=== PATIENT | male | born 1965 | race Caucasian/White ===

== ENCOUNTER 2017-10-24 16:10 | Emergency (ER) | payer OTHER ==
[2017-10-24] MEDS ORDERED: HYDROCODONE/APAP 10/325 TAB ONE (16:35)
[2017-10-24] MEDS ORDERED: CYCLOBENZAPRINE 10 MG TAB ONE (16:35)
[2017-10-24] MEDS ORDERED: IBUPROFEN 400 MG TAB ONE (16:35)
--- NOTE | 2017-10-24 17:52 | RAD REPORT ---
EXAM DESCRIPTION: RAD - Tib Fib Right - 10/24/2017 5:37 pm CLINICAL HISTORY: Right calf pain COMPARISON: None. FINDINGS: No fracture is identified. There is no dislocation or periosteal reaction noted. No acute or suspicious bony finding. No foreign body or other soft tissue abnormality. IMPRESSION: Negative right tibia & fibula examination.
--- NOTE | 2017-10-24 18:25 | EDPHYS ---
Physician Documentation [facility] Name: Chris Fairchild Age: 52 yrs Sex: Male : 1965 Arrival Date: 10/24/2017 Time: 16:13 Bed 14 Private MD: None, None ED Physician Leroy Gardner HPI: 10/24 16:59 This 52 yrs old Male presents to ER via Ambulatory with complaints of Right pm1 Leg Pain. 16:59 The patient presents with pain, that is acute, spasm, tightness. The complaints affect pm1 the right calf. Context: The problem was sustained outdoors, resulted from Sudden stopping while walking, the patient can partially bear weight, the patient is able to ambulate, with moderate difficulty, Problem is a result from a previous injury: Yes. Same right calf injury about 10 years ago that self resolved. Onset: The symptoms/episode began/occurred 5 hour(s) ago. Modifying factors: The symptoms are alleviated by nonweight bearing to right leg. the symptoms are aggravated by weight bearing. Associated signs and symptoms: Pertinent negatives numbness, tingling. Treatment prior to arrival includes: over the counter medications, NSAIDS, ibuprofen 400 mg at 1300. Severity of symptoms: in the emergency department the symptoms are unchanged. The patient has experienced a previous episode, many years ago. The patient has not recently seen a physician. Patient was walking after lunch then another person cut in front of him suddenly and he stopped quickly and possibly planted his foot. Immediately started feeling cramping and pain to right calf. No Achilles tendon pain or tenderness. Historical: - Allergies: 16:17 No Known Allergies; - Home Meds: 16:17 Simvastatin Oral [Active]; - PMHx: 16:17 Hyperlipidemia; - PSHx: 16:17 None; aj - Immunization history:: Adult Immunizations up to date. - Social history:: Smoking status: Patient/guardian denies using tobacco. ROS: 16:59 Constitutional: Negative for fever, chills, and weight loss, Eyes: Negative for injury, pm1 pain, redness, and discharge, ENT: Negative for injury, pain, and discharge, Neck: Negative for injury, pain, and swelling, Cardiovascular: Negative for chest pain, palpitations, and edema, Respiratory: Negative for shortness of breath, cough, wheezing, and pleuritic chest pain, Abdomen/GI: Negative for abdominal pain, nausea, vomiting, diarrhea, and constipation, Back: Negative for injury and pain. 16:59 Skin: Negative for injury, rash, and discoloration, Neuro: Negative for headache, weakness, numbness, tingling, and seizure. 16:59 MS/extremity: Positive for pain, of the right calf, Negative for decreased range of motion, swelling. Exam: 16:59 Constitutional: This is a well developed, well nourished patient who is awake, alert, pm1 and in no acute distress. Head/Face: Normocephalic, atraumatic. Chest/axilla: Normal chest wall appearance and motion. Nontender with no deformity. No lesions are appreciated. Cardiovascular: Regular rate and rhythm with a normal S1 and S2. No gallops, murmurs, or rubs. Normal PMI, no JVD. No pulse deficits. Respiratory: Lungs have equal breath sounds bilaterally, clear to auscultation and percussion. No rales, rhonchi or wheezes noted. No increased work of breathing, no retractions or nasal flaring. Back: No spinal tenderness. No costovertebral tenderness. Full range of motion. Skin: Warm, dry with normal turgor. Normal color with no rashes, no lesions, and no evidence of cellulitis. 16:59 Musculoskeletal/extremity: Extremities: grossly normal except: noted in the right calf: tenderness, , ROM: full active range of motion, in all extremities, Circulation is intact in all extremities. Pulses: are normal with no appreciated deficits, noted to be 2+ in the right popliteal artery, right dorsalis pedis artery, left popliteal artery and left dorsalis pedis artery, Sensation intact. Vital Signs: 16:17 BP 151 / 99; Pulse 90; Resp 18; Temp 98.0; Pulse Ox 97% on R/A; Weight 122.47 kg; aj Height 5 ft. 10 in. (177.80 cm); Pain 6/10; 17:30 BP 145 / 91; Pulse 85; Resp 16 S; Pulse Ox 97% on R/A; jl7 18:30 BP 145 / 90; Pulse 86; Resp 18 S; Pulse Ox 97% on R/A; jl7 16:17 Body Mass Index 38.74 (122.47 kg, 177.80 cm) aj Procedures: 18:42 Splinting: Splint applied to right ankle using Orthoglass splint, applied by tech. pm1 Examined by me, post splint application: neurovascular intact, 2+ distal pulses palpable, brisk capillary refill noted, Patient tolerated well. MDM: 16:22 Patient medically screened. pm1 18:24 Data reviewed: vital signs. Data interpreted: Pulse oximetry: on room air is 97 %. pm1 Interpretation: normal. Counseling: I had a detailed discussion with the patient and/or guardian regarding: the historical points, exam findings, and any diagnostic results supporting the discharge/admit diagnosis, radiology results, the need for outpatient follow up, to return to the emergency department if symptoms worsen or persist or if there are any questions or concerns that arise at home. 18:42 ED course: patient requested a splint to help prevent extension of right foot because pm1 it triggers moderate to severe pain. 10/24 16:31 Order name: Tib Fib Right XRAY; Complete Time: 17:56 pm1 10/24 16:32 Order name: Crutches; Complete Time: 18:36 pm1 10/24 18:24 Order name: Posterior Orthoglass Ankle Splint; Complete Time: 18:36 pm1 Administered Medications: 16:38 Drug: Flexeril 10 mg Route: PO; jl7 18:38 Follow up: Response: No adverse reaction; Pain is unchanged, physician notified jl7 16:38 Drug: [place] 10 mg-325 mg 1 tabs Route: PO; jl7 17:30 Follow up: Response: No adverse reaction; Pain is unchanged, physician notified jl7 16:39 Drug: Ibuprofen 400 mg Route: PO; jl7 17:30 Follow up: Response: No adverse reaction; Pain is unchanged, physician notified jl7 Disposition: 19:15 Co-signature as Attending Physician, Leroy Gardner MD I agree with the assessment and debbi plan of care. Disposition: 10/24/17 18:25 Discharged to Home. Impression: Strain of other muscle(s) and tendon(s) of posterior muscle group at lower leg level, right leg. - Condition is Stable. - Discharge Instructions: Cast or Splint Care, Crutch Use, Muscle Strain. - Prescriptions for Naprosyn 500 mg Oral Tablet - take 1 tablet by ORAL route 2 times per day take with food; 30 tablet. Cyclobenzaprine 10 mg Oral Tablet - take 1 tablet by ORAL route every 8 hours As needed; 30 tablet. - Medication Reconciliation Form, Thank You Letter form. - Follow up: Emergency Department; When: As needed; Reason: Worsening of condition. Follow up: Dr. Carlos Manuel Keller; When: 2 - 3 days; Reason: Recheck today's complaints, Continuance of care, Re-evaluation by your physician. - Problem is new. - Symptoms have improved. Signatures: Dispatcher [employer] EDEmilie Scales, RN RN Leroy Dowd MD MD cha Marinas, Patrick, RIGO VICE PRESIDENT OF INSTRUCTION pm1 Destin Hernandez RN RN jl7
--- NOTE | 2017-10-24 18:25 | ER ---
Nurse's Notes [facility] Name: Chris Fairchild Age: 52 yrs Sex: Male : 1965 Arrival Date: 10/24/2017 Time: 16:13 Bed 14 Private MD: None, None Diagnosis: Strain of other muscle(s) and tendon(s) of posterior muscle group at lower leg level, right leg Presentation: 10/24 16:15 Presenting complaint: Patient states: "I sprained my right calf muscle at lunch time aj when I had to stop suddenly while walking." Reports taking Ibuprofen 400 MG at 1300. Transition of care: patient was not received from another setting of care. Onset of symptoms was October 24, 2017. Initial Sepsis Screen: Does the patient meet any 2 criteria? No. Patient's initial sepsis screen is negative. Does the patient have a suspected source of infection? No. Patient's initial sepsis screen is negative. Care prior to arrival: None. 16:15 Method Of Arrival: Ambulatory 16:15 Acuity: YANETH 4 aj Triage Assessment: 16:17 General: Appears in no apparent distress. comfortable, Behavior is calm, cooperative, aj appropriate for age. Pain: Complains of pain in right calf Pain currently is 6 out of 10 on a pain scale. Neuro: Level of Consciousness is awake, alert, obeys commands, Oriented to person, place, time, situation. Respiratory: Airway is patent Respiratory effort is even, unlabored, Respiratory pattern is regular, symmetrical. Derm: Skin is intact, is healthy with good turgor, Skin is pink, warm \\T\\ dry. normal. Historical: - Allergies: 16:17 No Known Allergies; aj - Home Meds: 16:17 Simvastatin Oral [Active]; aj - PMHx: 16:17 Hyperlipidemia; aj - PSHx: 16:17 None; aj - Immunization history:: Adult Immunizations up to date. - Social history:: Smoking status: Patient/guardian denies using tobacco. Screenin:25 Abuse screen: Denies threats or abuse. Denies injuries from another. Nutritional jl7 screening: No deficits noted. Tuberculosis screening: No symptoms or risk factors identified. Fall Risk Gait- Impaired (20 pts.). Total Verma Fall Scale indicates No Risk (0-24 pts). Assessment: 16:25 General: Appears in no apparent distress. Pain: Complains of pain in right calf Pain jl7 currently is 6 out of 10 on a pain scale. Quality of pain is described as throbbing, Pain began suddenly, 4 hours ago. Is continuous. Neuro: Level of Consciousness is awake, alert, obeys commands, Oriented to person, place, time, situation. Cardiovascular: Patient's skin is warm and dry. Respiratory: Airway is patent Respiratory effort is even, unlabored, Respiratory pattern is regular, symmetrical. Musculoskeletal: Swelling absent. 17:30 Reassessment: No changes from previously documented assessment. Patient and/or family jl7 updated on plan of care and expected duration. Pain level reassessed. Patient is alert, oriented x 3, equal unlabored respirations, skin warm/dry/pink. 17:55 Reassessment: provider at bedside discussing plan of care. jl7 Vital Signs: 16:17 BP 151 / 99; Pulse 90; Resp 18; Temp 98.0; Pulse Ox 97% on R/A; Weight 122.47 kg; aj Height 5 ft. 10 in. (177.80 cm); Pain 6/10; 17:30 BP 145 / 91; Pulse 85; Resp 16 S; Pulse Ox 97% on R/A; jl7 18:30 BP 145 / 90; Pulse 86; Resp 18 S; Pulse Ox 97% on R/A; jl7 16:17 Body Mass Index 38.74 (122.47 kg, 177.80 cm) ED Course: 16:13 Patient arrived in ED. mr 16:14 None, None is Private Physician. mr 16:16 Triage completed. aj 16:17 Arm band placed on left wrist. Patient placed in an exam room. aj 16:19 Balta Carson, RIGO is PHCP. pm1 16:19 Leroy Gardner MD is Attending Physician. pm1 16:19 Destin Hernandez, LING is Primary Nurse. jl7 16:25 Patient has correct armband on for positive identification. Bed in low position. Call jl7 light in reach. Side rails up X 1. Pulse ox on. NIBP on. 17:36 X-ray completed. Portable x-ray completed in exam room. Patient tolerated procedure kc2 well. 17:37 Tib Fib Right XRAY In Process Unspecified. EDMS 18:25 Carlos Manuel Keller MD is Referral Physician. pm1 18:53 Crutch training done. Orthoglass splint: Posterior short lleg splint applied on right mh5 leg. 18:57 No provider procedures requiring assistance completed. Patient did not have IV access jl7 during this emergency room visit. IV discontinued. Administered Medications: 16:38 Drug: Flexeril 10 mg Route: PO; jl7 18:38 Follow up: Response: No adverse reaction; Pain is unchanged, physician notified jl7 16:38 Drug: [place] 10 mg-325 mg 1 tabs Route: PO; jl7 17:30 Follow up: Response: No adverse reaction; Pain is unchanged, physician notified jl7 16:39 Drug: Ibuprofen 400 mg Route: PO; jl7 17:30 Follow up: Response: No adverse reaction; Pain is unchanged, physician notified jl7 Outcome: 18:25 Discharge ordered by MD. pm1 18:42 Discharged to home ambulatory, with crutches, with family. jl7 18:42 Condition: stable 18:42 Discharge instructions given to patient, family, Instructed on discharge instructions, follow up and referral plans. medication usage, crutch walking, Demonstrated understanding of instructions, follow-up care, medications, crutch walking, Prescriptions given X 2. 18:55 Patient left the ED. jl7 Signatures: Dispatcher [employer] EDMS Emilie Connor, RN Savita Cannon Patrick, INDUSTRIAL ROOFER HELPER INDUSTRIAL ROOFER HELPER 1 Joanne Golden [facility] Savita Long [facility] Destin Hernandez RN RN jl7 Corrections: (The following items were deleted from the chart) 16:18 16:15 Acuity: YANETH 5 aj 18:38 18:37 Response: No adverse reaction; Pain is decreased jl7 jl7 18:57 18:42 Crutch training done. Orthoglass splint: jl7 jl7
== END 2017-10-24 18:55 | disposition home or self-care (01) ==
LOC: ER 16:10
PROC: 2W3QX1Z Immobilization of Right Lower Leg using Splint (ICD-10-PCS; principal; 2017-10-24)
DX: S86.111A Strain of other muscle(s) and tendon(s) of posterior muscle group at lower leg level, right leg, initial encounter (principal); X58.XXXA Exposure to other specified factors, initial encounter; Y93.01 Activity, walking, marching and hiking; Y92.89 Other specified places as the place of occurrence of the external cause; E78.5 Hyperlipidemia, unspecified
CPT/HCPCS: 99284

== ENCOUNTER 2024-05-18 08:11 | Observation (INO) | payer OTHER ==
[2024-05-18 08:48] LABS: Absolute Basophils 0.1 K/uL (0-0.5); Absolute Eosinophils 0.1 K/uL (0-0.5); Absolute Lymphocytes (CBC) 0.9 K/uL (0.7-4.9); Absolute Monocytes 0.5 K/uL (0.1-1.3); Absolute Neutrophil 5.2 K/uL (1.8-8.0); Basophils % 1.1 % (0-1.3); Eosinophils % 1.2 % (0-4.4); Hematocrit 43.1 % (39.6-49.0); Hemoglobin 14.8 g/dL (13.6-17.9); MCH 29.7 pg (27.0-35.0); MCHC 34.4 g/dL (32.0-36.0); MCV 86.2 fL (80-100); MPV 8.3 fL (7.6-11.3); Monocytes % 7.2 % (3.3-12.3); Neutrophils % 76.5 % (41.7-73.7); Nucleated Red Blood Cells % 0.2 % (0-0); Platelets 287 thou/uL (152-406); RBC Red Blood Cell Count 5.01 M/uL (4.33-5.43); Red Cell Distribution Width 14.5 % (12.1-15.2)
[2024-05-18 08:51] LABS: PT Prothrombin Time 13.4 SECONDS (9.4-12.5); Protime INR 1.2
--- NOTE | 2024-05-18 08:52 | RAD REPORT ---
EXAMINATION: ONE VIEW CHEST XR CLINICAL INDICATION: Male, 59 years old.CHEST PAIN TECHNIQUE: 1 View, AP supine, X-ray of the chest was performed. [id number]. COMPARISON: 10/16/2013 FINDINGS: Lungs and pleura: Clear lungs. No effusion. Heart and mediastinum: Normal heart size. Unremarkable mediastinal contours. Osseous structures: No acute abnormality. Tubes/lines: None Other: None. IMPRESSION: No acute intrathoracic abnormality.
[2024-05-18 09:08] LABS: ALT/SGPT 21 U/L (16-61); AST/SGOT 20 U/L (15-37); Albumin 3.7 g/dL (3.4-5.0); Albumin/Globulin Ratio 0.9 (1.1-1.8); Alkaline Phosphatase 51 U/L (45-117); Anion Gap 12.1 mEq/L (5.0-15.0); BUN Blood Urea Nitrogen 17 mg/dL (7-18); Bicarbonate 24 mEq/L (21-32); Bilirubin Total 0.4 mg/dL (0.2-1.0); Glomerular Filtration Rate 67 ml/min (=/>90); Glucose Level 142 mg/dL (74-106); NT PRO-BNP 21 pg/mL (<125); Potassium 3.1 mEq/L (3.5-5.1); Protein, Total 7.7 g/dL (6.4-8.2); Sodium Level 137 mEq/L (136-145); Troponin High Sensitivity 7.1 pg/mL (<58.9)
[2024-05-18 09:09] LABS: Bilirubin Direct < 0.2 mg/dL (0-0.2); Bilirubin Indirect, Calculated 0.2 mg/dL (0.2-0.8)
--- NOTE | 2024-05-18 10:36 | EDPHYS ---
Physician Documentation [facility] Name: Chris Fairchild Age: 59 yrs Sex: Male : 1965 Arrival Date: 05/18/2024 Time: 08:11 Bed 15 Private MD: ED Physician Samia Resendez HPI: 05/18 10:37 This 59 yrs old Unknown Male presents to ER via Ambulatory with complaints of Chest gb1 Pain, Shortness Of Breath, General Weakness. 10:37 59-year-old male with chest pain that feels like a heaviness in the center of his chest gb1 he woke up with it this morning and also had it before he went to bed last night. He has been seen by the director of preclinical research Dr. Bautista and this plan but not scheduled to have a left heart cath pending insurance approval. Patient denies any radiation of the pain or any fever chills or cough.. Historical: - Allergies: 08:24 No Known Allergies; ll1 - PMHx: 08:24 Hyperlipidemia; ll1 08:30 Hypertensive disorder; rs5 - PSHx: 08:30 None; rs5 - Immunization history:: Adult Immunizations up to date. - Infectious Disease History:: Denies. - Social history:: Smoking status: Patient denies any tobacco usage or history of. Exam: 10:37 Constitutional: This is a well developed, well nourished patient who is awake, alert, gb1 and in no acute distress. Head/Face: Normocephalic, atraumatic. Eyes: Pupils equal round and reactive to light, extra-ocular motions intact. Lids and lashes normal. Conjunctiva and sclera are non-icteric and not injected. Cornea within normal limits. Periorbital areas with no swelling, redness, or edema. ENT: Nares patent. No nasal discharge, no septal abnormalities noted. Tympanic membranes are normal and external auditory canals are clear. Oropharynx with no redness, swelling, or masses, exudates, or evidence of obstruction, uvula midline. Mucous membranes moist. Neck: Trachea midline, no thyromegaly or masses palpated, and no cervical lymphadenopathy. Supple, full range of motion without nuchal rigidity, or vertebral point tenderness. No Meningismus. Chest/axilla: Normal chest wall appearance and motion. Nontender with no deformity. No lesions are appreciated. Cardiovascular: Regular rate and rhythm with a normal S1 and S2. No gallops, murmurs, or rubs. Normal PMI, no JVD. No pulse deficits. Respiratory: Lungs have equal breath sounds bilaterally, clear to auscultation and percussion. No rales, rhonchi or wheezes noted. No increased work of breathing, no retractions or nasal flaring. Back: No spinal tenderness. No costovertebral tenderness. Full range of motion. Skin: Warm, dry with normal turgor. Normal color with no rashes, no lesions, and no evidence of cellulitis. MS/ Extremity: Pulses equal, no cyanosis. Neurovascular intact. Full, normal range of motion. Vital Signs: 08:28 BP 147 / 84; Pulse 70; Resp 17; Temp 98(O); Pulse Ox 98% on R/A; rs5 08:56 BP 142 / 80; Pulse 74; Resp 17; Pulse Ox 99% on R/A; rs5 10:05 BP 133 / 74; Pulse 77; Resp 17; Pulse Ox 99% on R/A; rs5 12:01 BP 145 / 81; Pulse 75; Resp 16; Pulse Ox 99% on R/A; rs5 13:30 BP 135 / 77; Pulse 70; Resp 16; Pulse Ox 99% on R/A; rs5 MDM: 08:23 Medical Screening Exam initiated gb1 10:37 HEART Score: History: Highly Suspicious (2), ECG: Non specific repolarization gb1 disturbance / LBTB / PM (1), Age: > 45 and < 65 years (1), Risk Factors: > or = 3 Risk factors for atherosclerotic disease (2), Troponin: < or = 1 x Normal Limit (0), Total Score = 6. 10:40 Data reviewed: EKG. ED course: EKG normal sinus rhythm at 80 bpm with a prolonged QTc gb1 at 461. Patient has a nonspecific ST-T wave changes in the inferior leads of 2 3 and aVF and also laterally flat T waves in leads I and aVL.. 10:41 ED course: 59-year-old male with history of hypertension and hyperlipidemia seen by Dr. mukesh Jenkins had a stress test and there was found to be V. tach on that stress test plan for left heart cath on admission today. Troponin negative EKG unremarkable for any acute ischemic changes. I discussed the case Dr. Jenkins at approximately 1015 and he is agreeable with inpatient admission for consultation of left heart cath. Dr. Miranda will admit him to the telemetry service.. 05/18 08:24 Order name: Basic Metabolic Panel; Complete Time: 09:19 gb05/18 08:24 Order name: CBC with Diff; Complete Time: 09:05/18 08:24 Order name: LFT's; Complete Time: :05/18 08:24 Order name: NT PRO-BNP; Complete Time: 09:05/18 08:24 Order name: PT-INR; Complete Time: 09:05/18 08:24 Order name: Troponin HS; Complete Time: 09:05/18 11:38 Order name: T4 Free [facility] 05/18 11:38 Order name: Thyroid Stimulating Hormone [facility] 05/18 11:38 Order name: Lipid Profile [facility] 05/18 11:38 Order name: Lipid Profile [facility] 05/18 11:38 Order name: Troponin High Sensitivity [facility] 05/18 11:38 Order name: Troponin High Sensitivity [facility] 05/18 11:38 Order name: Troponin High Sensitivity [facility] 05/18 08:24 Order name: XRAY Chest (1 view); Complete Time: 09:05/18 11:38 Order name: Echo with Doppler [facility] 05/18 08:24 Order name: EKG; Complete Time: 08:24 05/18 08:24 Order name: Cardiac monitoring; Complete Time: :05/18 08:24 Order name: EKG - Nurse/Tech; Complete Time: :55 05/18 08:24 Order name: IV Saline Lock; Complete Time: 08:55 05/18 08:24 Order name: Labs collected and sent; Complete Time: 08:55 05/18 08:24 Order name: O2 Per Protocol; Complete Time: :55 05/18 08:24 Order name: O2 Sat Monitoring; Complete Time: 08:55 gb1 Administered Medications: No medications were administered Disposition Summary: 05/18/24 10:35 Hospitalization Ordered Notes: Hospitalization Status: Inpatient Admission gb1 Provider: Miranda, Klever gb1 Location: Telemetry/MedSurg (Inpatient) gb1 Condition: Stable gb1 Problem: an acute exacerbation gb1 Symptoms: have worsened gb1 Bed/Room Type: Standard [facility] Room Assignment: 406(05/18/24 11:58) bd Diagnosis - Chest pain, unspecified gb1 Forms: - Medication Reconciliation Form gb1 - SBAR form gb1 - Leadership Thank You Letter gb1 Signatures: Dispatcher [employer] EDDiamante Herrera Lynsay, RN RN ll1 Fransisco Riddle RN RN rs5 Samia Resendez MD MD gb1 Corrections: (The following items were deleted from the chart) 11:58 10:35 gb1 bd
--- NOTE | 2024-05-18 10:36 | ER ---
Nurse's Notes [facility] Name: Chris Fairchild Age: 59 yrs Sex: Male : 1965 Arrival Date: 05/18/2024 Time: 08:11 Bed 15 Private MD: Diagnosis: Chest pain, unspecified Presentation: 05/18 08:28 Chief complaint: Patient states: chest tightness, heaviness and SOB that started last rs5 night. Coronavirus screen: At this time, the client does not indicate any symptoms associated with coronavirus-19. Ebola Screen: No symptoms or risks identified at this time. Initial Sepsis Screen: Does the patient meet any 2 criteria? No. Patient's initial sepsis screen is negative. Does the patient have a suspected source of infection? No. Patient's initial sepsis screen is negative. Risk Assessment: Do you want to hurt yourself or someone else? Patient reports no desire to harm self or others. Onset of symptoms was May 18, 2024. 08:28 Method Of Arrival: Ambulatory rs5 08:28 Acuity: YANETH 3 rs5 Historical: - Allergies: 08:24 No Known Allergies; ll1 - PMHx: 08:24 Hyperlipidemia; ll1 08:30 Hypertensive disorder; rs5 - PSHx: 08:30 None; rs5 - Immunization history:: Adult Immunizations up to date. - Infectious Disease History:: Denies. - Social history:: Smoking status: Patient denies any tobacco usage or history of. Screenin:[address] [facility] ED Fall Risk Assessment (Adult) History of falling in the last 3 months, rs5 including since admission No falls in past 3 months (0 pts) Confusion or Disorientation No (0 pts) Intoxicated or Sedated No (0 pts) Impaired Gait No (0 pts) Mobility Assist Device Used No (0 pt) Altered Elimination No (0 pt) Score/Fall Risk Level 0 - 2 = Low Risk Oriented to surroundings, Maintained a safe environment. Abuse screen: Denies threats or abuse. Nutritional screening: No deficits noted. 08:30 Tuberculosis screening: No symptoms or risk factors identified. rs5 Assessment: 08:20 General: Appears in no apparent distress. uncomfortable, Behavior is calm, cooperative. rs5 Pain: Complains of pain in chest Pain does not radiate. Pain currently is 2 out of 10 on a pain scale. Quality of pain is described as heavy, Pain began 1 day ago. Is continuous. Neuro: Level of Consciousness is awake, alert, obeys commands, Oriented to person, place, time, situation. Cardiovascular: Patient's skin is warm and dry. Respiratory: Reports shortness of breath Airway is patent Respiratory effort is even, unlabored, Respiratory pattern is regular, symmetrical. GI: Abdomen is round non-distended, Abd is soft and non tender X 4 quads. : No signs and/or symptoms were reported regarding the genitourinary system. EENT: No signs and/or symptoms were reported regarding the EENT system. Derm: Skin is intact, Skin is pink, warm \T\ dry. Musculoskeletal: Range of motion: intact in all extremities. 08:56 Reassessment: Patient and/or family updated on plan of care and expected duration. Pain rs5 level reassessed. Patient is alert, oriented x 3, equal unlabored respirations, skin warm/dry/pink. 10:05 Reassessment: Patient and/or family updated on plan of care and expected duration. Pain rs5 level reassessed. Patient is alert, oriented x 3, equal unlabored respirations, skin warm/dry/pink. 11:10 Reassessment: Patient and/or family updated on plan of care and expected duration. Pain rs5 level reassessed. Patient is alert, oriented x 3, equal unlabored respirations, skin warm/dry/pink. 12:05 Reassessment: Patient and/or family updated on plan of care and expected duration. Pain rs5 level reassessed. Patient is alert, oriented x 3, equal unlabored respirations, skin warm/dry/pink. 13:10 Reassessment: Patient and/or family updated on plan of care and expected duration. Pain rs5 level reassessed. Patient is alert, oriented x 3, equal unlabored respirations, skin warm/dry/pink. 13:40 Reassessment: Patient and/or family updated on plan of care and expected duration. Pain rs5 level reassessed. Patient is alert, oriented x 3, equal unlabored respirations, skin warm/dry/pink. Vital Signs: 08:28 BP 147 / 84; Pulse 70; Resp 17; Temp 98(O); Pulse Ox 98% on R/A; rs5 08:56 BP 142 / 80; Pulse 74; Resp 17; Pulse Ox 99% on R/A; rs5 10:05 BP 133 / 74; Pulse 77; Resp 17; Pulse Ox 99% on R/A; rs5 12:01 BP 145 / 81; Pulse 75; Resp 16; Pulse Ox 99% on R/A; rs5 13:30 BP 135 / 77; Pulse 70; Resp 16; Pulse Ox 99% on R/A; rs5 ED Course: 08:15 Patient arrived in ED. im 08:19 Samia Resendez MD is Attending Physician. gb1 08:20 Patient has correct armband on for positive identification. Placed in gown. Bed in low rs5 position. Call light in reach. Side rails up X2. Client placed on continuous cardiac and pulse oximetry monitoring. NIBP monitoring applied. school bus monitor on. 08:20 No provider procedures requiring assistance completed. rs5 08:23 Arm band placed on Patient placed in an exam room, on a stretcher. ll1 08:25 Inserted saline lock: 20 gauge in right antecubital area, using aseptic technique. rs5 Blood collected. Flushed with 10 mL NS. 08:26 Fransisco Riddle, RN is Primary Nurse. rs5 08:30 Triage completed. rs5 08:51 XRAY Chest (1 view) In Process Unspecified. EDMS 10:35 Klever Miranda MD is Hospitalizing Provider. gb1 13:35 Provided Education on: need for admit. rs5 13:40 Patient admitted, IV remains in place. Patient maintains SpO2 saturation greater than rs5 95% on room air. Administered Medications: No medications were administered Medication: 09:00 VIS not applicable for this client. rs5 Outcome: 10:35 Decision to Hospitalize by Provider. gb1 13:40 Admitted to Med/surg accompanied by tech, with chart, rs5 13:40 Condition: stable rs5 13:40 Instructed on the need for admit, Demonstrated understanding of instructions, 13:42 Patient left the ED. rs5 Signatures: Dispatcher [employer] EDMS Hilario Rodriguez RN RN ll1 Fransisco Riddle, LING RN rs5 Lesvia Hobson im Samia Resendez MD MD gb1 Corrections: (The following items were deleted from the chart) 18:57 13:35 Provided Education on: discharge instructions . rs5 rs5
--- NOTE | 2024-05-18 10:44 | P.HP ---
Certification for Inpatient Patient admitted to: Observation With expected LOS: <2 Midnights Patient will require the following post-hospital care: None Practitioner: I am a practitioner with admitting privileges, knowledge of patient current condition, hospital course, and medical plan of care. Services: Services provided to patient in accordance with Admission requirements found in Title 42 Section 412.3 of the Code of Federal Regulations Patient History Date of Service: 05/18/24 Reason for admission: Chest Pain r/o ACS History of Present Illness: Chris Fairchild is a 59 year old male with Pmhx HTN, HLD, and NATE who presents to the ED with chest heaviness, SOB, and weakness. He reports seeing Dr. Jenkins with concerns of SOB and weakness. He had a negative stress test and wore and holter monitor that showed runs of NSVT. He was pending schedule for a heart cath for further investigations but has presented today with unstable angina. Dr. Jenkins was consulted and plans for a heart cath in the morning. Troponin and EKG negative, laboratory evaluation significant for serum glucose 142, potassium 3.1, PT/INR 13.4/1.2. Initial Vitals BP 147 / 84; Pulse 70; Resp 17; Temp 98(O); Pulse Ox 98% on R/A Chest xray reports "No acute intrathoracic abnormality." Chris will be admitted to hospitalist service for evaluation of chest pain r/o ACS, Dr. Jenkins consulted. Allergies No Known Allergies Allergy (Unverified 10/24/17 18:59) - Past Medical/Surgical History -: Hypertension -: Hyperlipidemia -: Obstructive sleep apnea Past Surgical History: Reviewed- Non-Contributory - Family History Father -: Heart disease, Kidney disease Mother History Unknown: Yes - Social History Smoking Status: Never smoker Alcohol use: No CD- Drugs: No Review of Systems General: Weakness Respiratory: Shortness of Breath, SOB with Excertion Cardiovascular: Chest Pain (heaviness) Physical Examination - Physical Exam General: Alert, In no apparent distress, Oriented x3 HEENT: Atraumatic, Normocephalic, PERRLA Neck: Supple, 2+ carotid pulse no bruit, JVD not distended Respiratory: Clear to auscultation bilaterally, Normal air movement Cardiovascular: Normal pulses, Regular rate/rhythm, Normal S1 S2 Capillary refill: <2 Seconds Gastrointestinal: Normal bowel sounds, Soft and benign Musculoskeletal: No clubbing Integumentary: No rashes Neurological: Normal speech, Normal tone - Studies Laboratory Data (last 24 hrs) 05/18/24 05/18/24 05/18/24 08:34 08:34 08:34 WBC 6.80 Hgb 14.8 Hct 43.1 Plt Count 287 PT 13.4 H INR 1.20 Sodium 137 Potassium 3.1 L BUN 17 Creatinine 1.25 Glucose 142 H Total Bilirubin 0.4 AST 20 ALT 21 Alkaline Phosphatase 51 Assessment and Plan - Plan Assessment and Plan Chest Pain r/o ACS - EKG: No obvious ST segment changes - troponin 8.7, Serial pending - Ordered transthoracic echocardiogram - chest x-ray reports "No acute intrathoracic abnormality." - Consult Cardiology - Heart cath in AM - S/P aspirin 324 mg PO x 1 in ED - Start daily baby aspirin and statin - Symptom control with PRN acetaminophen, nitroglycerin, morphine - continuous telemetry - TSH/FreeT4, A1C, lipid panel pending Hyperglycemia -Serum glucose 142 -A1C in the AM -monitor in AM labs HTN/HLD NATE -Continue home medications if appropriate DVT ppx SCD Full code LOS 24 hour OBS Discharge Plan: Home Plan to discharge in: 24 Hours - Advance Directives Does patient have a Living Will: Yes Does patient have a Durable POA for Healthcare: No
[2024-05-18] MEDS ORDERED: ACETAMINOPHEN 325 MG TABLET PO PRN (11:31)
[2024-05-18] MEDS ORDERED: MORPHINE 2 MG/ML SYR IV PRN (11:31)
--- NOTE | 2024-05-18 11:50 | P.CNS ---
Date of Consult: 05/18/24 Chief Complaint: Chest Pain r/o ACS History of Present Illness: Patient with PMH of HTN, presented with chest pain started last night felt like pressure sensation, no radiation, feels weak, denies any other cardiac symptoms. Allergies No Known Allergies Allergy (Unverified 10/24/17 18:59) Home medications list reviewed: Yes Review of Systems 10-point ROS is otherwise unremarkable Physical Examination General: Alert, In no apparent distress HEENT: Atraumatic, PERRLA, Mucous membr. moist/pink, EOMI, Sclerae nonicteric Neck: Supple, 2+ carotid pulse no bruit, No LAD, Without JVD or thyroid abnormality Respiratory: Clear to auscultation bilaterally, Normal air movement Cardiovascular: Regular rate/rhythm, Normal S1 S2 Gastrointestinal: Normal bowel sounds, No tenderness Musculoskeletal: No tenderness Integumentary: No rashes Neurological: Normal gait, Normal speech, Normal tone, Normal affect Lymphatics: No axilla or inguinal lymphadenopathy Laboratory Data (last 24 hrs) 05/18/24 05/18/24 05/18/24 08:34 08:34 08:34 WBC 6.80 Hgb 14.8 Hct 43.1 Plt Count 287 PT 13.4 H INR 1.20 Sodium 137 Potassium 3.1 L BUN 17 Creatinine 1.25 Glucose 142 H Total Bilirubin 0.4 AST 20 ALT 21 Alkaline Phosphatase 51 - Problems (1) Unstable angina Current Visit: Yes Status: Acute Plan: Patient with symptoms concern for unstable angina, patient was seen in cardiology clinic, echo and stress test were normal but Event monitor shown few runs of NSVT. NPO for coronary angiogram ASA 81 mg daily Lipitor 40 mg daily Continue to trend cardiac enzymes. (2) HTN (hypertension) Current Visit: Yes Status: Acute Plan: monitor BP. (3) HLD (hyperlipidemia) Current Visit: Yes Status: Acute Plan: Lipitor 40 mg daily Lipid panel pending.
[2024-05-18 13:54] VITALS: BMI 38.2
[2024-05-18] MEDS: NA CHLORIDE 0.9% 1,000 ML IV SCH (14:30)
[2024-05-18 16:00] LABS: Thyroid Stimulating Hormone 1.51 uIU/mL (0.358-3.740)
[2024-05-18] MEDS: ATORVASTATIN 40 MG TAB PO SCH (20:48)
[2024-05-18] MEDS: POTASSIUM CL SA 10 MEQ TAB PO ONE (21:22)
[2024-05-19 07:47] LABS: Anion Gap 9.5 mEq/L (5.0-15.0); Potassium 3.5 mEq/L (3.5-5.1)
[2024-05-19 08:28] VITALS: TEMP 97.8
--- NOTE | 2024-05-19 08:55 | EKG ---
Test Date: 2024-05-18 Test Time: 08:42:46 Garbage Stoker: AM MEASUREMENT RESULTS: Intervals: Rate: 80 VT: 116 QRSD: 106 QT: 400 QTc: 461 [place]: P: 61 VT: 116 QRS: -10 T: 57 INTERPRETIVE STATEMENTS: Normal sinus rhythm Prolonged QT Abnormal ECG No previous ECG available for comparison Electronically Signed On 05-19-24 08:52:23 DIRT BIKE [employer]ACER by Angelito Jenkins
[2024-05-19] MEDS: LOSARTAN POTASSIUM 50 MG TABLET PO SCH (09:00)
[2024-05-19] MEDS: METOPROLOL XL 25 MG TAB PO SCH (09:00)
[2024-05-19] MEDS: hydroCHLOROthiazide 25 MG TAB PO SCH (09:00)
[2024-05-19] MEDS: ASPIRIN EC 81 MG TAB PO SCH (09:00)
[2024-05-19] MEDS ORDERED: LIDOCAINE 1% 20 ML MDV ONE (10:15)
[2024-05-19] MEDS ORDERED: HEPA 1000U/500MLS 2,000 UNIT/1,000 ML BAG IV ONE (10:15)
[2024-05-19] MEDS ORDERED: HEPARIN 10,000 UNIT/10 ML VIAL IV ONE (10:15)
[2024-05-19] MEDS ORDERED: MIDAZOLAM HCL 2 MG/2 ML INJ ONE (10:15)
[2024-05-19] MEDS ORDERED: ATROPINE SULF 1 MG/10 ML SYR IV ONE (10:15)
[2024-05-19] MEDS ORDERED: ASPIRIN 325 MG TAB ONE (10:16)
[2024-05-19] MEDS ORDERED: TICAGRELOR 90 MG TABLET PO ONE (10:16)
[2024-05-19] MEDS ORDERED: HEPARIN 5000 UNIT/ML 1 ML VIAL ONE (10:16)
[2024-05-19] MEDS ORDERED: CLOPIDOGREL 75 MG TABLET ONE (10:16)
[2024-05-19] MEDS ORDERED: FENTANYL CITR 100 MCG/2 ML ONE (10:17)
[2024-05-19] MEDS ORDERED: NITROGLYCERIN/D5W 50 MG/250 ML BTL IV ONE (13:09)
--- NOTE | 2024-05-19 14:52 | P.PN ---
Subjective Date of Service: 05/19/24 Chief Complaint: Chest Pain r/o ACS Subjective: No new changes, No C/O voiced, Tolerating diet, Ambulating, Improving Review of Systems 10-point ROS is otherwise unremarkable Physical Examination - Vital Signs Temperature: 97.8 F Blood Pressure: 129/80 Pulse: 71 Respirations: 16 Pulse Ox (%): 94 - Physical Exam General: Alert, In no apparent distress HEENT: Atraumatic, PERRLA, EOMI Neck: Supple, JVD not distended Respiratory: Clear to auscultation bilaterally, Normal air movement Cardiovascular: Regular rate/rhythm, Normal S1 S2 Gastrointestinal: Normal bowel sounds, No tenderness Musculoskeletal: No tenderness Integumentary: No rashes Neurological: Normal speech, Normal tone, Normal affect Lymphatics: No axilla or inguinal lymphadenopathy - Studies Medications List Reviewed: Yes Assessment And Plan - Current Problems (Diagnosis) (1) Unstable angina Current Visit: Yes Status: Acute Plan: Coronary angiogram done and shows normal coronaries with mild mid LAD intamyocardial bridge. ASA 81 mg daily Lipitor 40 mg daily (2) HTN (hypertension) Current Visit: Yes Status: Acute Plan: Continue Toprol XL 25 mg daily. Losartan 25 mg daily D/C HCTZ (3) HLD (hyperlipidemia) Current Visit: Yes Status: Acute Plan: Lipitor 40 mg daily LDL 95.
[2024-05-19 15:02] VITALS: O2SAT 94
[2024-05-19 15:30] VITALS: BP 119/65
--- NOTE | 2024-05-19 15:54 | P.DS ---
Admission Date: 05/18/24 Discharge Date: 05/19/24 Disposition: ROUTINE DISCHARGE Discharge Condition: GOOD Reason for Admission: Chest Pain r/o ACS Brief History of Present Illness: Diagnosis Chest Pain r/o ACS Hyperglycemia HTN/HLD NATE HPI Chris Fairchild is a 59 year old male with Pmhx HTN, HLD, and NATE who presents to the ED with chest heaviness, SOB, and weakness. He reports seeing Dr. Jenkins with concerns of SOB and weakness. He had a negative stress test and wore and holter monitor that showed runs of NSVT. He was pending schedule for a heart cath for further investigations but has presented today with unstable angina. Dr. Jenkins was consulted and plans for a heart cath in the morning. Troponin and EKG negative, laboratory evaluation significant for serum glucose 142, potassium 3.1, PT/INR 13.4/1.2. Initial Vitals BP 147 / 84; Pulse 70; Resp 17; Temp 98(O); Pulse Ox 98% on R/A Chest xray reports "No acute intrathoracic abnormality." Chris will be admitted to hospitalist service for evaluation of chest pain r/o ACS, Dr. Jenkins consulted. Hospital Course: Chris Fairchild is a pleasant 59-year-old male with a past medical history significant for HTN, HLD, and NATE who was admitted to the [facility] on 05/18/2024 for chest pain rule out ACS. Chris presented to the ED from Dr. Bautista his office when he complained of shortness of breath. He had a negative stress test and wore a Holter monitor that showed runs of NSVT. Troponins and EKG negative. He was admitted for futher monitoring and a cardiac cath which resulted in normal coronaries and filling pressures. Dr. Jenkins cleared him for discharge, he is hemodynamically stable, right wrist catheter site without hematoma. On 05/19/2024, Chris was seen on morning rounds and deemed medically stable for discharge. Chris was discharged with instructions to schedule follow-up appointments with PCP and Dr. Jenkins. Chris was provided prescriptions for Lipitor and losartan. Physical therapy Physical Exam General: Alert and Oriented x3, NAD HEENT: Atraumatic, Normocephalic, PERRLA, MMM Neck: Supple, 2+ carotid pulse no bruit, JVD not distended Respiratory: Clear to auscultation bilaterally, Normal air movement, on room air Cardiovascular: Normal pulses, RRR, Normal S1 S2 Capillary refill: <2 Seconds Gastrointestinal: Normal bowel sounds, Soft and benign on palpation, nontender Musculoskeletal: No clubbing Integumentary: No rashes Neurological: Normal speech, Normal tone Vital Signs/Physical Exam: Temp Pulse Resp BP Pulse Ox 97.8 F 70 16 119/65 94 05/19/24 14:51 05/19/24 15:26 05/19/24 15:26 05/19/24 15:26 05/19/24 14:51 Laboratory Data at Discharge: WBC 6.80 thou/uL (4.3-10.9) 05/18/24 08:34 Hgb 14.8 g/dL (13.6-17.9) 05/18/24 08:34 Hct 43.1 % (39.6-49.0) 05/18/24 08:34 Plt Count 287 thou/uL (152-406) 05/18/24 08:34 PT 13.4 SECONDS (9.4-12.5) H 05/18/24 08:34 INR 1.20 05/18/24 08:34 Sodium 138 mEq/L (136-145) 05/19/24 06:58 Potassium 3.5 mEq/L (3.5-5.1) 05/19/24 06:58 BUN 15 mg/dL (7-18) 05/19/24 06:58 Creatinine 1.07 mg/dL (0.70-1.30) 05/19/24 06:58 Glucose 102 mg/dL (74-106) 05/19/24 06:58 Total Bilirubin 0.4 mg/dL (0.2-1.0) 05/18/24 08:34 AST 20 U/L (15-37) 05/18/24 08:34 ALT 21 U/L (16-61) 05/18/24 08:34 Alkaline Phosphatase 51 U/L (45-117) 05/18/24 08:34 Triglycerides 97 mg/dL (<150) 05/18/24 15:19 Cholesterol 150 mg/dL (<200) 05/18/24 15:19 HDL Cholesterol 35 mg/dL (40-60) L 05/18/24 15:19 Cholesterol/HDL Ratio 4.29 05/18/24 15:19 Home Medications: Aspirin [Low Dose Aspirin EC] 1 tab PO BEDTIME 05/18/24 Cholecalciferol (Vitamin D3) [Vitamin D3] 1,000 unit PO EVERY 7TH DAY 05/18/24 Metformin HCl [Glucophage*] 500 mg PO DAILY WITH BREAKFAST 05/18/24 Metoprolol Succinate [Toprol Xl*] 1 tab PO DAILY 05/18/24 Niacin (Inositol Niacinate) [Niacin Flush Free 500 mg Cap] 1 cap PO BEDTIME 05/18/24 Atorvastatin Calcium [Lipitor] 40 mg PO BEDTIME 30 Days #30 tab 05/19/24 Losartan Potassium 1 tab PO DAILY 30 Days #30 tab 05/19/24 New Medications: Atorvastatin Calcium [Lipitor] 40 mg PO BEDTIME 30 Days #30 tab Losartan Potassium 1 tab PO DAILY 30 Days #30 tab Physician Discharge Instructions: 1. Please call and schedule a follow-up appointment with your PCP in 3-5 days - Please follow-up with your PCP for medication refills/adjustments 2. Please call and schedule a follow-up appointment with Dr. Jenkins in one week -Monitor Blood pressure twice daily and record for your commercial singer to review -changes were made to your blood pressure medications 3. Continue heart healthy diet 4. activity restrictions Do not lift greater than 10 pounds for three days 5. Return to the ED if symptoms worsen New medications Lipitor 40 mg daily Losartan 25 mg daily Continue medications Aspirin 81 mg p.o. daily Toprol XL 25 mg p.o. daily Stop medication Hydrochlorothiazide Diet: AHA Activity: No lifting more than 10 lbs Followup: Angelito Jenkins MD [ACTIVE - CAN ADMIT] - 1-2 Weeks Zeke Wagner MD [Primary Care Provider] - 1-2 Weeks
[2024-05-19] MEDS ORDERED: HOME MED 1 EA UNK (Losartan Potassium [Losartan Potassium] 25 MG Tablet) PO SCH (21:00)
--- NOTE | 2024-05-20 02:26 | OP ---
Date of Procedure: 05/19/2024 Surgeon: Angelito Jenkins Procedures Performed: 1.Selective coronary angiogram. 2.Left heart catheterization. Indication For Procedure: Unstable angina, nonsustained VTs on Holter monitor. Access: Right radial, closed by TR band. Sedation Time: 20 minutes with 1 of Versed and 50 of fentanyl. Complications: None. Estimated Blood Loss: Less than 50 cc. Description Of Procedure: After risks, benefits, and alternatives were explained to patient, patient agreed to proceed with the procedure and signed informed consent. Patient was brought back to the c ath lab, prepped and draped in sterile fashion. Time-out was performed. Sedation was administered. Next, right radial access was obtained using an ultrasound-guided micropuncture technique. Fertile 4 catheter was advanced over J-wire to the LV cavity. LVEDP was obtained. Pullback did not show any g radient. Same catheter was used for selective angiogram of the left and right coronary systems. Cat heter was removed over a J-wire. Sheath was removed. TR band was applied. Hemostasis achieved. Th e patient was moved back to recovery in stable condition. Findings: 1.Left main normal. 2.LAD, proximal mild luminal irregularities with mid to distal diffuse atherosclerosis with mid segm ent mild intramyocardial bridge. 3.Left circ, mild luminal irregularities. 4.RCA; large, dominant, mild luminal irregularities. 5.LVEDP 13 mmHg. Assessment And Plan: 1.Normal coronaries. 2.Normal filling pressure. 3.Mild mid intramyocardial bridge of the LAD segment. Plan will be to continue medical treatment for CAD. EILEEN/DANIELA Voice ID: [id number] Report ID: [id number]
== END 2024-05-19 16:20 | disposition home or self-care (01) ==
LOC: ER 08:11 → ERHOLD 11:31 → 4TH 12:27
PROVIDERS: ADMIT Hospitalist; ATTEND Internal Medicine
PROC: 4A023N7 Measurement of Cardiac Sampling and Pressure, Left Heart, Percutaneous Approach (ICD-10-PCS; principal; 2024-05-19)
PROC: B2111ZZ Fluoroscopy of Multiple Coronary Arteries using Low Osmolar Contrast (ICD-10-PCS; 2024-05-19)
DX: I25.110 Atherosclerotic heart disease of native coronary artery with unstable angina pectoris (principal); Q24.5 Malformation of coronary vessels; I47.10 Supraventricular tachycardia, unspecified; I10 Essential (primary) hypertension; R73.9 Hyperglycemia, unspecified; G47.33 Obstructive sleep apnea (adult) (pediatric); E78.5 Hyperlipidemia, unspecified; Z82.49 Family history of ischemic heart disease and other diseases of the circulatory system
CPT/HCPCS: 93005; 85025; 80048 ×2; 36415; 85610; 80061; 80076; 84443; 83036; 84484 ×3; 84439; 83880; 71045; 93458; 76937; 99285; C1893; Q9966; J1644; J2003; J2250; J3010; G0378 ×4; J7030 ×2; 99152; 99153; J0461